=== PATIENT | male | born 1940 | race Caucasian/White ===

== ENCOUNTER 2020-05-05 10:33 | Inpatient (IN) | payer OTHER, MEDICARE ==
[~2020-05-05] VITALS: Ht 182.9 cm; Wt 77.3 kg
[2020-05-05] VITALS (8 sets, daily range): BP systolic 111–170; BP diastolic 58–101; Ht 182.9 cm; Wt 77.3 kg
[2020-05-05 11:16] LABS: BASOPHILS 0.7 % (0-2); EOSINOPHILS 1.6 % (0-7); HEMATOCRIT 35.8 % (42.0-54.0); HEMOGLOBIN 11.1 g/dL (13.5-17.5); LYMPHOCYTES 12.6 % (15-50); MCH 30.9 pg (26.0-34.0); MCV 99.7 fL (80.0-100.0); MEAN PLATELET VOLUME 11.6 fL (7.4-10.4); MONOCYTES 6.6 % (2-11); NEUTROPHILS 78.5 % (40-80); PLATELET COUNT 177 10x3/uL (130-400); RBC 3.59 10x6/uL (4.20-6.10); RDW 13.2 % (11.5-14.5); WBC 4.3 10x3/uL (4.8-10.8)
[2020-05-05 11:26] LABS: BILIRUBIN NEGATIVE (NEGATIVE); KETONE NEGATIVE (NEGATIVE); NITRITE NEGATIVE (NEGATIVE); UROBILINOGEN NORMAL mg/dL (< 2)
[2020-05-05 11:31] LABS: INR 1.14 (0.85-1.17); PROTIME 14.5 SECONDS (11.6-15.0)
[2020-05-05 11:32] LABS: APTT 30.3 SECONDS (22.8-39.4)
[2020-05-05 11:33] LABS: CALC OSMOLALITY 272 mosm/kg (275-300); CARBON DIOXIDE 27.8 mmol/L (21.0-32.0); CHLORIDE - SERUM 100 mmol/L (98-107); CREATININE - SERUM 1.2 mg/dL (0.6-1.3); GLUCOSE 96 mg/dL (74-106); POTASSIUM - SERUM 4.4 mmol/L (3.5-5.1); SODIUM 136 mmol/L (136-145); UREA NITROGEN 15 mg/dL (7-18); eGFR NON AFRICAN AMERICAN 62 mL/min (90-120)
[2020-05-05 11:49] LABS: ALBUMIN 3.7 g/dL (3.4-5.0); ALKALINE PHOSPHATASE 122 U/L (30-120); ALT (SGPT) 15 U/L (10-68); BILIRUBIN - TOTAL 0.72 mg/dL (0.2-1.3); CKMB 1.6 U/L (0.0-3.6); CREATINE KINASE 75 UL (21-232); MAGNESIUM - SERUM 2.4 mg/dL (1.8-2.4); PROTEIN - SERUM 7.7 g/dL (6.4-8.2); TROPONIN-I < 0.017 ng/mL (0.000-0.060)
--- NOTE | 2020-05-05 14:30 | NUR ---
CARDIAZEM TO 10ML.
--- NOTE | 2020-05-05 14:44 | NUR ---
VERBAL ORDER REC'D FROM Maricarmen WONG AP[facility] TO PLACE INDWELLING CATH. 16 F CATH PLACED USING STERILE TECHNIQUE. PT TOLERATED WELL. 400ML CLEAR, YELLOW URINE EMPTIED FROM CATH AFTER INSERTION.
--- NOTE | 2020-05-05 15:36 | NUR ---
URINE OUT 525ML.
--- NOTE | 2020-05-05 16:08 | NUR ---
COVID SWAB OBTAINED AND SENT.
--- NOTE | 2020-05-05 16:35 | NUR ---
REPORT GIVEN TO EDISON FRANCISCO.
--- NOTE | 2020-05-05 16:56 | NUR ---
675 ML URINE OUT.
--- NOTE | 2020-05-05 17:00 | NUR ---
NS CONTINUED ON TRANSFER TO ROOM. 886ML REMAINED. CARDIZEM CONTINUED ON TRANSFER TO ROOM. 72.6ML REMAINED.
[2020-05-05] MEDS ORDERED: LISINOPRIL20 MG PO (22:23)
[2020-05-05] MEDS ORDERED: FLOMAX0.4 MG PO (22:24)
[2020-05-05] MEDS ORDERED: ELIQUIS5 MG PO (22:24)
[2020-05-06] VITALS: BP 100/47
[2020-05-06 07:02] LABS: BASOPHILS 0.6 % (0-2); EOSINOPHILS 4.1 % (0-7); HEMOGLOBIN 9.3 g/dL (13.5-17.5); LYMPHOCYTES 18.1 % (15-50); MCH 30.4 pg (26.0-34.0); MEAN PLATELET VOLUME 11.1 fL (7.4-10.4); MONOCYTES 7.3 % (2-11); NEUTROPHILS 69.9 % (40-80); PLATELET COUNT 146 10x3/uL (130-400); RBC 3.06 10x6/uL (4.20-6.10); RDW 13.2 % (11.5-14.5); WBC 3.4 10x3/uL (4.8-10.8)
[2020-05-06 07:06] VITALS: BP 107/58
[2020-05-06 07:23] LABS: ALBUMIN 2.8 g/dL (3.4-5.0); BILIRUBIN - TOTAL 0.55 mg/dL (0.2-1.3); CALCIUM 7.9 mg/dL (8.5-10.1); CARBON DIOXIDE 26.6 mmol/L (21.0-32.0); CREATININE - SERUM 1.1 mg/dL (0.6-1.3); PROTEIN - SERUM 5.9 g/dL (6.4-8.2)
[2020-05-06 07:25] LABS: ANION GAP 10.8 mmol/L (8-16); POTASSIUM - SERUM 3.4 mmol/L (3.5-5.1)
--- NOTE | 2020-05-06 10:44 | MORECARE ---
CASE MANAGEMENT DISCHARGE SUMMARY PATIENT: LYNDSEY HERNANDEZ UNIT: [id number] ADM DATE: 05/05/20 AGE: 80 : 40 SEX: M ROOM/BED: D.2116 AUTHOR: BERNADINE BOSCH PHYSICIAN: REFERRING PHYSICIAN: WINSTON SHAY DO DATE OF SERVICE: 05/06/20 Discharge Plan Patient Name: LYNDSEY HERNANDEZ [facility] [facility] 1940 Planned Disposition: Home Anticipated Discharge Date: Discharge Date: Expected LOS: Initial Reviewer: [email or web address] Initial Review Date: 05/06/2020 Generated: 05/06/20 11:44 am DCPIA - Discharge Planning Initial Assessment Updated by [email or web address]: Chelsie Castaneda on 05/06/20 10:42 am * Is the patient Alert and Oriented? Yes * [facility] [place] [facility] * Preadmission Environment Home with Family * ADLs Independent * Equipment None * List name and contact numbers for known caregivers / representatives who currently or will assist patient after discharge: Victor Manuel Hernandez - - [phone] * Verbal permission to speak to the caregivers and representatives has been obtained from the patient. Yes * [facility] resources currently utilized [facility] * Additional services required to return to the preadmission environment? No * Can the patient safely return to the preadmission environment? Yes * Has this patient been hospitalized within the prior 30 days at any hospital? No Patient Name: LYNDSEY HERNANDEZ Page [id number] at 1044 All edits/amendments must be made on the electronic document DICTATION DATE: 05/06/20 1044 CLIN NURSE SPEC: ASHA 05/06/20 1044 RPT#: [id number] DC DATE: STATUS: ADM IN [facility] [address] [place] [address] END OF REPORT
--- NOTE | 2020-05-06 10:52 | MORECARE ---
CASE MANAGEMENT DISCHARGE SUMMARY PATIENT: LYNDSEY HERNANDEZ UNIT: [id number] ADM DATE: 05/05/20 AGE: 80 : 40 SEX: M ROOM/BED: D.2116 AUTHOR: BERNADINE BOSCH PHYSICIAN: REFERRING PHYSICIAN: WINSTON SHAY DO DATE OF SERVICE: 05/06/20 Discharge Plan Patient Name: LYNDSEY HERNANDEZ Facility: [facility]:[place] : 1940 Planned Disposition: Home Anticipated Discharge Date: Discharge Date: Expected LOS: Initial Reviewer: [email or web address] Initial Review Date: 05/06/2020 Generated: 05/06/20 11:51 am Comments DCP- Discharge Planning Updated by [email or web address]: Chelsie Castaneda on 05/06/20 9:[address] Patient Name: LYNDSEY HERNANDEZ Admission Status: ER Accout number: [id number] Admission Date: 05-05-2020 : 1940 Admission Diagnosis:UNSPECIFIED ATRIAL FLUTTER Attending: WINSTON SHAY Current LOS: 1 Anticipated DC Date: Planned Disposition: Home Primary Insurance: [employer] Discharge Planning Comments: CM met with patient in the room to discuss discharge planning/needs. Patient states he lives with his brother. States he is independent with all his care. States he has a walker, but walks unaided. States he still drives. States he has a medicine box that he prepares by the week and does that himself. He [facility]. I notified the [facility] of patient's admission by [ENCRYPT] email of his admission. I informed him of services available, home health, rehab, SNF and DME, he denies needs at this time. States he plans to return home at discharge. I called his brother and he verifies information on face sheet. His SS# is [id number] and I have notified admissions. His brother states that he will oversee his medication when he returns home. States "my brother's short term memory is gone." CM will continue to follow and assist with discharge planning/needs. Airplane Designer: Chelsie Castaneda DCPIA - Discharge Planning Initial Assessment Updated by [email or web address]: Chelsie Castaneda on 05/06/20 10:42 am * Is the patient Alert and Oriented? Yes * PCP [place] [facility] * Preadmission Environment Home with Family * ADLs Independent * Equipment None * List name and contact numbers for known caregivers / representatives who currently or will assist patient after discharge: Victor Manuel Hernandez - brother - [phone] * Verbal permission to speak to the caregivers and representatives has been obtained from the patient. Yes * Community resources currently utilized [facility] * Additional services required to return to the preadmission environment? No * Can the patient safely return to the preadmission environment? Yes * Has this patient been hospitalized within the prior 30 days at any hospital? No Last DP export: 05/06/20 9:45 a Patient Name: LYNDSEY HERNANDEZ Page [id number] at 1052 All edits/amendments must be made on the electronic document DICTATION DATE: 05/06/20 1051 DIRECTOR COMMERCIAL SALES: ASHA 05/06/20 1051 RPT#: [id number] DC DATE: STATUS: ADM IN [facility] [address] [place] [address] END OF REPORT
[2020-05-06 11:03] VITALS: BP 139/75
[2020-05-06] MEDS ORDERED: LIPITOR80 MG PO (14:20)
[2020-05-06 14:57] VITALS: BP 117/71
[2020-05-06 20:00] VITALS: BP 101/60; BP 105/63
--- NOTE | 2020-05-07 02:36 | NUR ---
IV CARDIZEM DROPPED TO 5 CC/HR, PTS HR FROM 55-75 SR FOR THE LAST 8 HOURS.
--- NOTE | 2020-05-07 02:43 | NUR ---
DOMESTIC LAUNDRY WORKER AT BED SIDE, BATH AND LINEN CHANGE COMPLETE.
[2020-05-07 04:00] VITALS: BP 103/63
[2020-05-07 06:44] LABS: BASOPHILS 0.8 % (0-2); HEMATOCRIT 32.6 % (42.0-54.0); LYMPHOCYTES 22.8 % (15-50); MCH 30.5 pg (26.0-34.0); MCHC 30.7 g/dL (31.0-37.0); MCV 99.4 fL (80.0-100.0); MEAN PLATELET VOLUME 11.4 fL (7.4-10.4); MONOCYTES 7.4 % (2-11); PLATELET COUNT 171 10x3/uL (130-400); RBC 3.28 10x6/uL (4.20-6.10); RDW 13.4 % (11.5-14.5); WBC 3.8 10x3/uL (4.8-10.8)
[2020-05-07 07:19] LABS: ALBUMIN 3.1 g/dL (3.4-5.0); ANION GAP 8.2 mmol/L (8-16); BILIRUBIN - TOTAL 0.59 mg/dL (0.2-1.3); CALCIUM 8.8 mg/dL (8.5-10.1); CARBON DIOXIDE 28.2 mmol/L (21.0-32.0); CREATININE - SERUM 1.2 mg/dL (0.6-1.3); MAGNESIUM - SERUM 2.4 mg/dL (1.8-2.4); POTASSIUM - SERUM 4.4 mmol/L (3.5-5.1); PROTEIN - SERUM 6.7 g/dL (6.4-8.2)
--- NOTE | 2020-05-07 07:30 | NUR ---
IV SL. CARDIZEM GTT DCD. ASTUDILLO CATH DCD 200CC BLOOD TINGED URINE OP AND 10CC BULB. WILL MONITOR VOID.
[2020-05-07 11:41] VITALS: BP 123/77
--- NOTE | 2020-05-07 14:42 | NUR ---
PT STATES HE HAS VOIDED SINCE CATH DCD. WILL CONT. PLAN OF CARE.
[2020-05-07] MEDS ORDERED: ELIQUIS2.5 MG PO (14:58)
[2020-05-07] MEDS ORDERED: BETAPACE 80 MG80 MG PO (14:58)
[2020-05-07] MEDS ORDERED: FUROSEMIDE20 MG PO (15:32)
--- NOTE | 2020-05-07 15:36 | MORECARE ---
CASE MANAGEMENT DISCHARGE SUMMARY PATIENT: LYNDSEY HERNANDEZ UNIT: [id number] ADM DATE: 05/05/20 AGE: 80 : 40 SEX: M ROOM/BED: D.2116 AUTHOR: DANITZADOC PHYSICIAN: REFERRING PHYSICIAN: WINSTON SHAY DO DATE OF SERVICE: 05/07/20 Discharge Plan Patient Name: LYNDSEY HERNANDEZ Facility: [facility]:[place] : 1940 Planned Disposition: Home Anticipated Discharge Date: Discharge Date: Expected LOS: Initial Reviewer: [email or web address] Initial Review Date: 05/06/2020 Generated: 05/07/20 4:36 pm Comments DCP- Discharge Planning Updated by [email or web address]: Chelsie Castaneda on 05/07/20 2:[address] Received discharge orders/No needs identified. Home with family. DCP- Discharge Planning Updated by [email or web address]: Chelsie Castaneda on 05/06/20 9:[address] Patient Name: LYNDSEY HERNANDEZ Admission Status: ER Accout number: [id number] Admission Date: 05-05-2020 : 1940 Admission Diagnosis:UNSPECIFIED ATRIAL FLUTTER Attending: WINSTON SHAY Current LOS: 1 Anticipated DC Date: Planned Disposition: Home Primary Insurance: [facility] Discharge Planning Comments: CM met with patient in the room to discuss discharge planning/needs. Patient states he lives with his brother. States he is independent with all his care. States he has a walker, but walks unaided. States he still drives. States he has a medicine box that he prepares by the week and does that himself. He [facility] all [facility]. I notified the [facility] of patient's admission by [ENCRYPT] email of his admission. I informed him of services available, home health, rehab, SNF and DME, he denies needs at this time. States he plans to return home at discharge. I called his brother and he verifies information on face sheet. His SS# is [id number] and I have notified admissions. His brother states that he will oversee his medication when he returns home. States "my brother's short term memory is gone." CM will continue to follow and assist with discharge planning/needs. Corn Chip Maker: Chelsie Castaneda DCPIA - Discharge Planning Initial Assessment Updated by [email or web address]: Chelsie Castaneda on 05/06/20 10:42 am * Is the patient Alert and Oriented? Yes * [facility] * Preadmission Environment Home with Family * ADLs Independent * Equipment None * List name and contact numbers for known caregivers / representatives who currently or will assist patient after discharge: Victor Manuel Hernandez - brother - [phone] * Verbal permission to speak to the caregivers and representatives has been obtained from the patient. Yes * Community resources currently utilized [facility] * Additional services required to return to the preadmission environment? No * Can the patient safely return to the preadmission environment? Yes * Has this patient been hospitalized within the prior 30 days at any hospital? No Last DP export: 05/06/20 9:52 a Patient Name: LYNDSEY HERNANDEZ Page [id number] at 1536 All edits/amendments must be made on the electronic document DICTATION DATE: 05/07/20 1536 PRODUCT EXAMINER: ASHA 05/07/20 1536 RPT#: [id number] NM DATE: STATUS: ADM IN [facility] [address] [place] [address] END OF REPORT
--- NOTE | 2020-05-07 16:01 | MORECARE ---
CASE MANAGEMENT DISCHARGE SUMMARY PATIENT: LYNDSEY HERNANDEZ UNIT: [id number] ADM DATE: 05/05/20 AGE: 80 : 40 SEX: M ROOM/BED: D.2116 AUTHOR: DANITZADOC PHYSICIAN: REFERRING PHYSICIAN: WINSTON SHAY DO DATE OF SERVICE: 05/07/20 Discharge Plan Patient Name: LYNDSEY HERNANDEZ Facility: [facility]:[place] : 1940 Planned Disposition: Home Anticipated Discharge Date: Discharge Date: Expected LOS: Initial Reviewer: [id number] Initial Review Date: 05/06/2020 Generated: 05/07/20 5:00 pm Comments DCP- Discharge Planning Updated by [email or web address]: Chelsie Castaneda on 05/07/20 2:[address] Received discharge orders/No needs identified. Home with family. DCP- Discharge Planning Updated by [email or web address]: Chelsie Castaneda on 05/06/20 9:[address] Patient Name: LYNDSEY HERNANDEZ Admission Status: ER Accout number: [id number] Admission Date: 05-05-2020 : 1940 Admission Diagnosis:UNSPECIFIED ATRIAL FLUTTER Attending: WINSTON SHAY Current LOS: 1 Anticipated DC Date: Planned Disposition: Home Primary Insurance: [facility] [employer] Discharge Planning Comments: CM met with patient in the room to discuss discharge planning/needs. Patient states he lives with his brother. States he is independent with all his care. States he has a walker, but walks unaided. States he still drives. States he has a medicine box that he prepares by the week and does that himself. He [facility] all [facility]. I notified the [facility] of patient's admission by [ENCRYPT] email of his admission. I informed him of services available, home health, rehab, SNF and DME, he denies needs at this time. States he plans to return home at discharge. I called his brother and he verifies information on face sheet. His SS# is [id number] and I have notified admissions. His brother states that he will oversee his medication when he returns home. States "my brother's short term memory is gone." CM will continue to follow and assist with discharge planning/needs. Electronics Specialist: Cehlsie Castaneda DCPIA - Discharge Planning Initial Assessment Updated by [email or web address]: Chelsie Castaneda on 05/06/20 10:42 am * Is the patient Alert and Oriented? Yes * [facility] * Preadmission Environment Home with Family * ADLs Independent * Equipment None * List name and contact numbers for known caregivers / representatives who currently or will assist patient after discharge: Victor Manuel Hernandez - brother - [phone] * Verbal permission to speak to the caregivers and representatives has been obtained from the patient. Yes * Community resources currently utilized [facility] * Additional services required to return to the preadmission environment? No * Can the patient safely return to the preadmission environment? Yes * Has this patient been hospitalized within the prior 30 days at any hospital? No External Providers External Provider: OTHER-OTHER Next Contact Date: Service Request Date: Service Type: Resolution: Reviewer: Comments: Last DP export: 05/07/20 2:36 p Patient Name: LYNDSEY HERNANDEZ Page 57487 at 1601 All edits/amendments must be made on the electronic document DICTATION DATE: 05/07/201599 GLUING MACHINE OFFBEARER: ASHA 05/07/201599 RPT#: [id number] DC DATE: STATUS: ADM IN [facility] [address] [place] [address] END OF REPORT
--- NOTE | 2020-05-07 16:09 | MORECARE ---
CASE MANAGEMENT DISCHARGE SUMMARY PATIENT: LYNDSEY HERNANDEZ UNIT: [id number] ADM DATE: 05/05/20 AGE: 80 : 40 SEX: M ROOM/BED: D.2116 AUTHOR: DANITZADOC PHYSICIAN: REFERRING PHYSICIAN: WINSTON SHAY DO DATE OF SERVICE: 05/07/20 Discharge Plan Patient Name: LYNDSEY HERNANDEZ Facility: [facility]:[place] : 1940 Planned Disposition: Home Anticipated Discharge Date: Discharge Date: Expected LOS: Initial Reviewer: [email or web address] Initial Review Date: 05/06/2020 Generated: 05/07/20 5:08 pm Comments DCP- Discharge Planning Updated by [email or web address]: Chelsie Castaneda on 05/07/20 3:[address] CM received dc orders. Patient's brother is here to take home. He has a free coupon for Eliquis. Meds were called in to [facility]. I have also given hand written Rx for the [facility] from [facility] and faxed the [facility] clinic his DC orders and clinical. Home today with brother. DCP- Discharge Planning Updated by [id number]: Chelsie Castaneda on 05/07/20 2:[address] Received discharge orders/No needs identified. Home with family. DCP- Discharge Planning Updated by [email or web address]: Chelsie Castaneda on 05/06/20 9:[address] Patient Name: LYNDSEY HERNANDEZ Admission Status: ER Accout number: [id number] Admission Date: 05-05-2020 : 1940 Admission Diagnosis:UNSPECIFIED ATRIAL FLUTTER Attending: WINSTON SHAY Current LOS: 1 Anticipated DC Date: Planned Disposition: Home Primary Insurance: [employer] Discharge Planning Comments: CM met with patient in the room to discuss discharge planning/needs. Patient states he lives with his brother. States he is independent with all his care. States he has a walker, but walks unaided. States he still drives. States he has a medicine box that he prepares by the week and does that himself. He [facility] all [facility]. I notified the [facility] of patient's admission by [ENCRYPT] email of his admission. I informed him of services available, home health, rehab, SNF and DME, he denies needs at this time. States he plans to return home at discharge. I called his brother and he verifies information on face sheet. His SS# is [id number] and I have notified admissions. His brother states that he will oversee his medication when he returns home. States "my brother's short term memory is gone." CM will continue to follow and assist with discharge planning/needs. Art Specialist: Chelsie Castaneda DCPIA - Discharge Planning Initial Assessment Updated by [email or web address]: Chelsie Castaneda on 05/06/20 10:42 am * Is the patient Alert and Oriented? Yes * [facility] * Preadmission Environment Home with Family * ADLs Independent * Equipment None * List name and contact numbers for known caregivers / representatives who currently or will assist patient after discharge: Victor Manuel Hernandez - brother - [phone] * Verbal permission to speak to the caregivers and representatives has been obtained from the patient. Yes * Community resources currently utilized [facility] * Additional services required to return to the preadmission environment? No * Can the patient safely return to the preadmission environment? Yes * Has this patient been hospitalized within the prior 30 days at any hospital? No Last DP export: 05/07/20 3:01 p Patient Name: LYNDSEY HERNANDEZ Page [phone] at 1609 All edits/amendments must be made on the electronic document DICTATION DATE: 05/07/201607 BAKERY SALES CLERK: ASHA 05/07/201607 RPT#: [id number] [place] DATE: STATUS: ADM IN [facility] [address] [place] [address] END OF REPORT
--- NOTE | 2020-05-07 16:33 | NUR ---
Rehab Prescreening Consult recieved and the chart has been reviewed. His primary is listed as VA. He has Medicare Part A but would have to sign a waiver to bill his Medicare part A and not the VA. If he chooses to do that he would be responsible for his deductible as well as the charges for Part B which includes the physician and all his visits while in the rehab unit. Lurdes Thornton RN Clinical Liaison, Rehab the
--- NOTE | 2020-05-07 17:23 | NUR ---
IV AND TELEMETRY DCD. DC PLANS GIVEN. UNDERSTANDING VOICED. ESCORTED TO CAR BY W/C.
--- NOTE | 2020-05-08 09:38 | MORECARE ---
CASE MANAGEMENT DISCHARGE SUMMARY PATIENT: LYNDSEY HERNANDEZ UNIT: [id number] ADM DATE: 05/05/20 AGE: 80 : 40 SEX: M ROOM/BED: D.2116 AUTHOR: DANITZADOC PHYSICIAN: REFERRING PHYSICIAN: WINSTON SHAY DO DATE OF SERVICE: 05/08/20 Discharge Plan Patient Name: LYNDSEY HERNANDEZ Facility: [facility]:[place] : 1940 Planned Disposition: Home Anticipated Discharge Date: Discharge Date: 05/07/2020 Expected LOS: Initial Reviewer: [email or web address] Initial Review Date: 05/06/2020 Generated: 05/08/20 10:38 am Comments DCP- Discharge Planning Updated by [email or web address]: Chelsie Castaneda on 05/07/20 3:[address] CM received dc orders. Patient's brother is here to take home. He has a free coupon for Eliquis. Meds were called in to [facility] pharmacy. I have also given hand written Rx for the VA from [facility] and faxed the [facility] clinic his DC orders and clinical. Home today with brother. DCP- Discharge Planning Updated by [email or web address]: Chelsie Castaneda on 05/07/20 2:[address] Received discharge orders/No needs identified. Home with family. DCP- Discharge Planning Updated by [email or web address]: Chelsie Castaneda on 05/06/20 9:[address] Patient Name: LYNDSEY HERNANDEZ Admission Status: ER Accout number: [id number] Admission Date: 05-05-2020 : 1940 Admission Diagnosis:UNSPECIFIED ATRIAL FLUTTER Attending: WINSTON SHAY Current LOS: 1 Anticipated DC Date: Planned Disposition: Home Primary Insurance: [employer] Discharge Planning Comments: CM met with patient in the room to discuss discharge planning/needs. Patient states he lives with his brother. States he is independent with all his care. States he has a walker, but walks unaided. States he still drives. States he has a medicine box that he prepares by the week and does that himself. He gets all [facility] Rx [facility] from the [facility]. I notified the VA of patient's admission by [ENCRYPT] email of his admission. I informed him of services available, home health, rehab, SNF and DME, he denies needs at this time. States he plans to return home at discharge. I called his brother and he verifies information on face sheet. His SS# is [id number] and I have notified admissions. His brother states that he will oversee his medication when he returns home. States "my brother's short term memory is gone." CM will continue to follow and assist with discharge planning/needs. Workshop Manager: Chelsie Tonya DCPIA - Discharge Planning Initial Assessment Updated by [email or web address]: Chelsie Castaneda on 05/06/20 10:42 am * Is the patient Alert and Oriented? Yes * [facility] * Preadmission Environment Home with Family * ADLs Independent * Equipment None * List name and contact numbers for known caregivers / representatives who currently or will assist patient after discharge: Victor Manuel Hernandez - brother - [phone] * Verbal permission to speak to the caregivers and representatives has been obtained from the patient. Yes * Community resources currently utilized [facility] * Additional services required to return to the preadmission environment? No * Can the patient safely return to the preadmission environment? Yes * Has this patient been hospitalized within the prior 30 days at any hospital? No Last DP export: 05/07/20 3:09 p Patient Name: LYNDSEY HERNANDEZ Page [id number] at 0938 All edits/amendments must be made on the electronic document DICTATION DATE: 05/08/20937 LUNCH COOK: ASHA 05/08/20937 RPT#: [id number] DC DATE:05/07/20 STATUS: DIS IN [facility] [address] [place] [address] END OF REPORT
== END 2020-05-07 17:24 | disposition home or self-care (01) | DRG 310 ==
LOC: D.ER 10:33 → D.EDHOLD 14:41 → D.M2 14:41
PROVIDERS: Family Medicine; ADMIT Family Medicine; ATTEND Family Medicine
DX: I48.92 Unspecified atrial flutter (principal); N40.0 Benign prostatic hyperplasia without lower urinary tract symptoms; E78.5 Hyperlipidemia, unspecified; I10 Essential (primary) hypertension; D64.9 Anemia, unspecified; I48.91 Unspecified atrial fibrillation